=== PATIENT | male | born 1970 | race Caucasian/White ===

== ENCOUNTER 2017-09-02 15:27 | Emergency (ER) | payer MEDICAID ==
--- NOTE | 2017-09-02 15:37 | EDM.PDOC ---
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 Past medical history: As per history of present illness and as reviewed below otherwise noncontributory. Surgical history: As per history of present illness and as reviewed below otherwise noncontributory. Social history: No reported history of drug or alcohol abuse. Family history: As per history of present illness and as reviewed below otherwise noncontributory. Physical exam: HEENT: Atraumatic, normocephalic, pupils reactive, negative for conjunctival pallor or scleral icterus, mucous membranes moist, throat clear, neck supple, nontender, trachea midline. Sinus tenderness right greater than left supraorbital sinuses oropharynx clear no meningeal sign Lungs: Clear to auscultation, breath sounds equal bilaterally, chest nontender. Heart: S1S2, regular, negative for clicks, rubs, or JVD. Abdomen: Soft, nondistended, nontender. Negative for masses or hepatosplenomegaly. Negative for costovertebral tenderness. Pelvis: Stable nontender. Genitourinary: Deferred. Rectal: Deferred. Extremities: Atraumatic, negative for cords or calf pain. Neurovascular unremarkable. Neuro: Awake, alert, oriented. Cranial nerves II through XII unremarkable. Cerebellum unremarkable. Motor and sensory unremarkable throughout. Exam nonfocal. Diagnostics: [Chest 2 views] EKG Therapeutics: [DuoNeb Solu-Medrol Z-Gio HFA Medrol Dosepak ] Impression: [ acute bronchitis /sinusitis Chronic history baseline] Definitive disposition and diagnosis as appropriate pending reevaluation and review of above. lungs Pain Score (Numeric/FACES): 2 - Related Data Allergies Allergy/AdvReac Type Severity Reaction Status Date / Time Unable to Assess Allergy Unverified 09/02/17 15:35 Home Meds: Home Meds atorvaSTATin [Lipitor] 40 mg PO BEDTIME 09/02/17 [History] metFORMIN [Glucophage XR] 09/02/17 [History] ED ROS GENERAL - Review of Systems Review Of Systems: ROS reveals no pertinent complaints other than HPI. ED EXAM, GENERAL - Physical Exam Exam: See Below Course - Vital Signs Last Recorded V/S: Last Vital Signs Temp 97.7 F 09/02/17 15:32 Pulse 85 09/02/17 15:32 Resp 18 09/02/17 15:32 BP 96/72 09/02/17 15:32 Pulse Ox 97 09/02/17 15:32 - Orders/Labs/Meds Orders: Active Orders 24 hr Category Date Time Status EKG Documentation Completion [RC] STAT Care 09/02/17 15:48 Active RT Aerosol Therapy [RC] ASDIRECTED Care 09/02/17 15:48 Active Chest 2V [CR] Stat Exams 09/02/17 15:36 Taken Meds: Medications Discontinued Medications Generic Name Dose Route Start Last Admin Trade Name Tacosq PRN Reason Stop Dose Admin Albuterol/Ipratropium 3 ml 09/02/17 15:48 09/02/17 15:57 Duoneb 3.0-0.5 Mg/3 Ml NEB 09/02/17 15:49 3 ml ONETIME ONE Administration Methylprednisolone Sodium Succinate 125 mg 09/02/17 15:48 09/02/17 15:54 Solu-Medrol IM 09/02/17 15:49 125 mg ONETIME ONE Administration Departure - Departure Time of Disposition: 16:45 Disposition: Home, Self-Care 01 Condition: Good Clinical Impression: Acute bronchitis, Sinusitis - Discharge Information Forms: ED Department Discharge Additional Instructions: The following information is given to patients seen in the emergency department who are being discharged to home. This information is to outline your options for follow-up care. We provide all patients seen in our emergency department with a follow-up referral. The need for follow-up, as well as the timing and circumstances, are variable depending upon the specifics of your emergency department visit. If you don't have a primary care physician on staff, we will provide you with a referral. We always advise you to contact your personal physician following an emergency department visit to inform them of the circumstance of the visit and for follow-up with them and/or the need for any referrals to a consulting specialist. The emergency department will also refer you to a specialist when appropriate. This referral assures that you have the opportunity for follow-up care with a specialist. All of these measure are taken in an effort to provide you with optimal care, which includes your follow-up. Under all circumstances we always encourage you to contact your private physician who remains a resource for coordinating your care. When calling for follow-up care, please make the office aware that this follow-up is from your recent emergency room visit. If for any reason you are refused follow-up, please contact the [facility] emergency department at and asked to speak to the emergency department charge nurse. - My Orders Last 24 Hours: My Active Orders 09/02/17 15:36 Chest 2V [CR] Stat 09/02/17 15:48 EKG Documentation Completion [RC] STAT RT Aerosol Therapy [RC] ASDIRECTED - Assessment/Plan Last 24 Hours: My Active Orders 09/02/17 15:36 Chest 2V [CR] Stat 09/02/17 15:48 EKG Documentation Completion [RC] STAT RT Aerosol Therapy [RC] ASDIRECTED
[2017-09-02] MEDS ORDERED: methylPREDNISolone Sodium Succinate 125 MG/2 ML SDV IM ONE (15:48)
[2017-09-02] MEDS ORDERED: Albuterol/Ipratropium 3.0-0.5 MG/3 ML Neb Soln NEB ONE (15:48)
--- NOTE | 2017-09-03 13:07 | CR ---
EXAM DATE: 09/02/17 PATIENT'S AGE: 47 Patient: FATOUMATA RIOJAS Facility: [place], [place] Site . Site : [id number] Study: XRay Chest [id number] 4:31:22 PM Ordering Physician: Lizbeth Negron Final Report: INDICATION: Shortness of breath, dyspnea TECHNIQUE: Chest radiograph 2 views COMPARISON: None FINDINGS: Mediastinum: The heart silhouette is normal in size and morphology. The mediastinum is normal in appearance. A small hiatal hernia is noted. Lungs: Both lungs are unremarkable in appearance. No sign of pleural effusion seen. No pneumothorax is identified. Bones and soft tissue: Unremarkable for age. IMPRESSION: 1. No acute cardiopulmonary disease is seen. 2. A small hiatal hernia is noted. Dictated by: Bon Celis MD @ 09/02/2017 16:38:38 (Electronic Signature) Report Signed by Proxy. LIA
== END 2017-09-02 17:00 | disposition home or self-care (01) ==
LOC: MW.ED 15:27
DX: J20.9 Acute bronchitis, unspecified (principal); J01.90 Acute sinusitis, unspecified
CPT/HCPCS: 71046; 93005; 94640; 96372; 99285; J2930; 99282

== ENCOUNTER 2020-12-18 10:05 | Emergency (ER) | payer MEDICAID ==
--- NOTE | 2020-12-18 11:22 | PCM.EKG ---
#1 Interpretation Time: 11:22 EKG Interpretation Comments: 69, normal sinus rhythm, nonspecific ST/T findings
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
--- NOTE | 2020-12-18 11:34 | CR ---
Indication: Shortness of breath Comparison: Two-view chest September 02, 2017 Technique: PA and Lateral views chest Findings: There is hyperinflation and chronic interstitial change with mildly increased interstitial markings likely representing pulmonary edema. The cardiac silhouette is enlarged. The bony thorax is grossly intact. Impression: Hyperinflation and chronic interstitial changes with mildly increased interstitial markings likely representing pulmonary edema. Dictated by Brady Camejo MD @ 12/18/2020 11:32:[address] Brady Camejo @ Dec 18 2020 11:32AM
[2020-12-18 11:53] LABS: BLOOD UREA NITROGEN,BUN 17 mg/dL (7.0-18.0); CHLORIDE,CL 105 mmol/L (98-107); GLUCOSE RANDOM 171 mg/dL (74-106); LIPASE 109 U/L (73-393); POTASSIUM,K 4.2 mmol/L (3.5-5.1); SODIUM,NA 140 mmol/L (136-148)
[2020-12-18] MEDS ORDERED: Furosemide 40 MG Tab PO ONE (12:50)
== END 2020-12-18 13:05 | disposition home or self-care (01) ==
LOC: MW.ED 10:05
DX: J81.1 Chronic pulmonary edema (principal); E66.9 Obesity, unspecified; I10 Essential (primary) hypertension; R73.03 Prediabetes; Z88.5 Allergy status to narcotic agent; Z68.41 Body mass index [BMI] 40.0-44.9, adult
CPT/HCPCS: 36415; 71046; 80053; 83690; 84484; 85025; 85379; 93005; 99285; A9270

== ENCOUNTER 2021-09-10 12:09 | Emergency (ER) | payer MEDICAID ==
[2021-09-10] MEDS ORDERED: Dexamethasone 10 MG/ML SDV PO ONE (12:48)
== END 2021-09-10 13:12 | disposition home or self-care (01) ==
LOC: MW.ED 12:09
DX: J03.90 Acute tonsillitis, unspecified (principal); E78.00 Pure hypercholesterolemia, unspecified; K21.9 Gastro-esophageal reflux disease without esophagitis; I10 Essential (primary) hypertension; E66.9 Obesity, unspecified; Z68.41 Body mass index [BMI] 40.0-44.9, adult; Z90.49 Acquired absence of other specified parts of digestive tract; Z79.899 Other long term (current) drug therapy; Z88.5 Allergy status to narcotic agent
CPT/HCPCS: 99282; J8540

== ENCOUNTER 2021-10-06 22:10 | Emergency (ER) | payer MEDICAID ==
[2021-10-06] MEDS ORDERED: Ondansetron 4 MG/2 ML SDV IVPUSH ONE (22:54)
== END 2021-10-06 23:35 | disposition home or self-care (01) ==
LOC: MW.ED 22:10
DX: R11.0 Nausea (principal); E78.00 Pure hypercholesterolemia, unspecified; I10 Essential (primary) hypertension; K21.9 Gastro-esophageal reflux disease without esophagitis; E11.9 Type 2 diabetes mellitus without complications; E66.9 Obesity, unspecified; Z68.41 Body mass index [BMI] 40.0-44.9, adult; Z88.5 Allergy status to narcotic agent; Z79.899 Other long term (current) drug therapy; Z79.84 Long term (current) use of oral hypoglycemic drugs
CPT/HCPCS: 93005; 96374; 99283; J2405; 93010

== ENCOUNTER 2021-11-02 18:20 | Emergency (ER) | payer MEDICAID ==
[2021-11-02] MEDS ORDERED: Sodium Chloride 0.9% 2.5 ML Syringe FLUSH PRN (19:02)
[2021-11-02] MEDS ORDERED: Sodium Chloride 0.9% 1,000 ML IV ONE (19:02)
[2021-11-02] MEDS ORDERED: Sodium Chloride 0.9% 10 ML Syringe FLUSH PRN (19:02)
[2021-11-02 19:40] LABS: CARBON DIOXIDE,CO2 25.3 mmol/L (21.0-32.0)
[2021-11-02] MEDS ORDERED: Ketorolac 30 MG/ML SDV IVPUSH ONE (19:48)
== END 2021-11-02 19:59 | disposition home or self-care (01) ==
LOC: MW.ED 18:20
DX: R07.89 Other chest pain (principal); E78.00 Pure hypercholesterolemia, unspecified; I10 Essential (primary) hypertension; E11.9 Type 2 diabetes mellitus without complications; E66.9 Obesity, unspecified; Z68.38 Body mass index [BMI] 38.0-38.9, adult; Z88.5 Allergy status to narcotic agent; Z79.82 Long term (current) use of aspirin; Z79.84 Long term (current) use of oral hypoglycemic drugs; Z79.899 Other long term (current) drug therapy
CPT/HCPCS: 36415; 71045; 80053; 84484; 85025; 93005; 96361; 96374; 99285; J1885; J3490; J7030

== ENCOUNTER 2021-11-22 17:35 | Emergency (ER) | payer MEDICAID ==
[2021-11-22] MEDS ORDERED: Penicillin V Potassium 500 MG Tab PO STA (18:53)
[2021-11-22] MEDS ORDERED: Lidocaine 2% Viscous Solution 100 ML Bottle PO ONE (18:53)
[2021-11-22] MEDS ORDERED: Benzocaine 20% Topical Spray UD MUCMEM ONE (18:53)
[2021-11-22] MEDS ORDERED: Lidocaine 2% Viscous Solution 15 ML UD PO ONE (19:54)
== END 2021-11-22 20:04 | disposition home or self-care (01) ==
LOC: MW.ED 17:35
DX: K04.7 Periapical abscess without sinus (principal); E78.00 Pure hypercholesterolemia, unspecified; I10 Essential (primary) hypertension; E11.9 Type 2 diabetes mellitus without complications; E66.9 Obesity, unspecified; Z68.34 Body mass index [BMI] 34.0-34.9, adult; Z88.6 Allergy status to analgesic agent; Z79.899 Other long term (current) drug therapy; Z79.84 Long term (current) use of oral hypoglycemic drugs; Z79.82 Long term (current) use of aspirin; Z90.49 Acquired absence of other specified parts of digestive tract
CPT/HCPCS: 99283; A9270

== ENCOUNTER 2022-03-07 03:14 | Emergency (ER) | payer MEDICAID ==
[2022-03-07] MEDS ORDERED: Sodium Chloride 0.9% 10 ML Syringe FLUSH PRN (03:33)
[2022-03-07] MEDS ORDERED: Sodium Chloride 0.9% 2.5 ML Syringe FLUSH PRN (03:33)
[2022-03-07] MEDS ORDERED: Albuterol/Ipratropium 3.0-0.5 MG/3 ML Neb Soln NEB ONE (03:39)
[2022-03-07 04:15] LABS: CARBON DIOXIDE,CO2 23.1 mmol/L (21.0-32.0); POTASSIUM,K 3.9 mmol/L (3.5-5.1)
[2022-03-07 04:28] LABS: CORONAVIRUS COVID-19 NAA NEGATIVE (NEGATIVE); INFLUENZA A NAA NEGATIVE (NEGATIVE); INFLUENZA B NAA NEGATIVE (NEGATIVE); RESPIRATORY SYNCYTIAL VIR NAA NEGATIVE (NEGATIVE)
== END 2022-03-07 05:05 | disposition home or self-care (01) ==
LOC: MW.ED 03:14
DX: R06.02 Shortness of breath (principal); J06.9 Acute upper respiratory infection, unspecified; E78.00 Pure hypercholesterolemia, unspecified; I10 Essential (primary) hypertension; E11.9 Type 2 diabetes mellitus without complications; E66.9 Obesity, unspecified; Z68.41 Body mass index [BMI] 40.0-44.9, adult; Z88.6 Allergy status to analgesic agent; Z79.899 Other long term (current) drug therapy; Z79.84 Long term (current) use of oral hypoglycemic drugs; Z79.82 Long term (current) use of aspirin; Z90.49 Acquired absence of other specified parts of digestive tract; Z20.822 Contact with and (suspected) exposure to COVID-19
CPT/HCPCS: 0241U; 36415; 71045; 80053; 81003; 83880; 84484; 85025; 93005; 99285; J3490; J7620-GY

== ENCOUNTER 2022-03-12 17:50 | Emergency (ER) | payer MEDICAID ==
[2022-03-12] MEDS ORDERED: Aspirin 81 MG Tab.Chew PO ONE (18:07)
[2022-03-12 19:07] LABS: CORONAVIRUS COVID-19 NAA NEGATIVE (NEGATIVE); INFLUENZA A NAA NEGATIVE (NEGATIVE); INFLUENZA B NAA NEGATIVE (NEGATIVE)
[2022-03-12 19:19] LABS: CARBON DIOXIDE,CO2 25.9 mmol/L (21.0-32.0); POTASSIUM,K 3.9 mmol/L (3.5-5.1)
[2022-03-12] MEDS ORDERED: Ketorolac 30 MG/ML SDV IVPUSH ONE (20:27)
== END 2022-03-12 21:16 | disposition home or self-care (01) ==
LOC: MW.ED 17:50
DX: R07.9 Chest pain, unspecified (principal); E78.00 Pure hypercholesterolemia, unspecified; I11.0 Hypertensive heart disease with heart failure; I50.9 Heart failure, unspecified; K21.9 Gastro-esophageal reflux disease without esophagitis; E11.9 Type 2 diabetes mellitus without complications; E66.9 Obesity, unspecified; Z68.41 Body mass index [BMI] 40.0-44.9, adult; Z91.14 Patient's other noncompliance with medication regimen; Z88.5 Allergy status to narcotic agent; Z79.82 Long term (current) use of aspirin; Z79.899 Other long term (current) drug therapy; Z20.822 Contact with and (suspected) exposure to COVID-19
CPT/HCPCS: 0240U; 36415; 71045; 80053; 82947; 83880; 84484; 85025; 85379; 93005; 96374; 99285; A9270; J1885

== ENCOUNTER 2022-03-20 00:30 | Emergency (ER) | payer MEDICAID ==
[2022-03-20] MEDS ORDERED: Albuterol/Ipratropium 3.0-0.5 MG/3 ML Neb Soln NEB ONE (00:54)
[2022-03-20 01:45] LABS: CARBON DIOXIDE,CO2 26.7 mmol/L (21.0-32.0); POTASSIUM,K 4.3 mmol/L (3.5-5.1)
[2022-03-20] MEDS ORDERED: Magnesium Oxide 400 MG Tab PO ONE (02:01)
[2022-03-20] MEDS ORDERED: predniSONE 20 MG Tab PO ONE (02:02)
== END 2022-03-20 02:24 | disposition home or self-care (01) ==
LOC: MW.ED 00:30
DX: J20.9 Acute bronchitis, unspecified (principal); E11.9 Type 2 diabetes mellitus without complications; I11.0 Hypertensive heart disease with heart failure; I50.9 Heart failure, unspecified; E66.9 Obesity, unspecified; Z68.41 Body mass index [BMI] 40.0-44.9, adult; Z88.5 Allergy status to narcotic agent; Z79.82 Long term (current) use of aspirin; Z79.84 Long term (current) use of oral hypoglycemic drugs; Z20.822 Contact with and (suspected) exposure to COVID-19
CPT/HCPCS: 36415; 71045; 80048; 83735; 83880; 84484; 85025; 87635; 99285; A9270; J7620-GY; U0002

== ENCOUNTER 2022-04-25 11:24 | Emergency (ER) | payer MEDICAID ==
[2022-04-25] MEDS ORDERED: diphenhydrAMINE 50 MG Cap PO ONE (12:00)
[2022-04-25] MEDS ORDERED: predniSONE 20 MG Tab PO ONE (12:01)
[2022-04-25 12:37] LABS: CORONAVIRUS COVID-19 NAA NEGATIVE (NEGATIVE); INFLUENZA A NAA NEGATIVE (NEGATIVE); INFLUENZA B NAA NEGATIVE (NEGATIVE); RESPIRATORY SYNCYTIAL VIR NAA NEGATIVE (NEGATIVE)
== END 2022-04-25 13:21 | disposition home or self-care (01) ==
LOC: MW.ED 11:24
DX: R06.02 Shortness of breath (principal); T48.6X5A Adverse effect of antiasthmatics, initial encounter; E78.00 Pure hypercholesterolemia, unspecified; I10 Essential (primary) hypertension; E11.9 Type 2 diabetes mellitus without complications; E66.9 Obesity, unspecified; Z68.41 Body mass index [BMI] 40.0-44.9, adult; Z88.6 Allergy status to analgesic agent; Z79.899 Other long term (current) drug therapy; Z79.82 Long term (current) use of aspirin; Z79.84 Long term (current) use of oral hypoglycemic drugs; Z90.49 Acquired absence of other specified parts of digestive tract; Z20.822 Contact with and (suspected) exposure to COVID-19
CPT/HCPCS: 0241U; 87651; 99283; A9270

== ENCOUNTER 2022-04-26 07:43 | Emergency (ER) | payer MEDICAID ==
[2022-04-26] MEDS ORDERED: Pseudoephedrine 30 MG Tab PO ONE (08:31)
== END 2022-04-26 09:26 | disposition home or self-care (01) ==
LOC: MW.ED 07:43
DX: G47.33 Obstructive sleep apnea (adult) (pediatric) (principal); R06.02 Shortness of breath; E78.00 Pure hypercholesterolemia, unspecified; E11.9 Type 2 diabetes mellitus without complications; I10 Essential (primary) hypertension; I25.10 Atherosclerotic heart disease of native coronary artery without angina pectoris; E66.9 Obesity, unspecified; K21.9 Gastro-esophageal reflux disease without esophagitis; Z88.5 Allergy status to narcotic agent; Z79.899 Other long term (current) drug therapy; Z79.82 Long term (current) use of aspirin; Z68.41 Body mass index [BMI] 40.0-44.9, adult
CPT/HCPCS: 70490; 99283; A9270